=== PATIENT | male | born 1965 | race Caucasian/White ===

== ENCOUNTER 2016-08-14 00:52 | Day surgery (SDC) | payer MEDICARE, OTHER ==
[~2016-08-14] VITALS: Ht 165.1 cm; Wt 95.0 kg
[2016-08-14] VITALS (15 sets, daily range): BP systolic 105–150; BP diastolic 68–88; PULSE 76–91; RESP 11–22; Ht 165.1 cm; Wt 95.0 kg
[~2016-08-14 00:52] MED LIST: ASPI81TA50 PO; BEN50 PO; DIL125/5 PO; GABAPENTIN; METO10TA92 PO; OMEP20CA16 PO; VIC PO
--- NOTE | 2016-08-14 01:15 | ERA ---
ER Documentation Chief Complaint Date/Time DATE: 08/14/16 TIME: 01:15 Chief Complaint Abdominal pain HPI The patient is a 51-year-old male, presenting to the ER because of severe umbilical abdominal pain that began about 3 hours prior to arrival, 03/22, no aggravating or relieving factor, associated with constipation. He denies similar symptoms previously, he denies fever, chills, neck pain, chest pain. The abdominal pain is severe, associated with vomiting mostly mucus. He denies dysuria, polyuria. He does not smoke, drinks socially Past medical history: Hypertension, seizure disorder, history of brain cancer for the last 7 years, completed radiation and chemotherapy in May 2016 Past surgical history: Brain biopsy ROS All systems reviewed and are negative except as per history of present illness. Medications Home Meds Reported Medications Omeprazole* (Omeprazole*) 20 Mg Capsule.dr, 20 MG PO DAILY 06/14/11 Metoclopramide* (Reglan*) 10 Mg Tablet, 10 MG PO BID 06/14/11 Diphenhydramine Hcl* (Benadryl*) 50 Mg Cap, 50 MG PO 06/14/11 Acetaminophen/Hydrocodone (Vicodin) 1 Tab Tab, 1 TAB PO 06/14/11 [Gabapaintin] No Conflict Check 06/14/11 Phenytoin (Dilantin) 100 Mg/4 Ml Susp, 100 MG PO BID 06/14/11 Aspirin (Aspir-Low) 81 Mg Tablet.dr, 81 MG PO DAILY 06/14/11 Allergies Allergies: Coded Allergies: ibuprofen (Verified Adverse Reaction, Mild, RASH, 06/14/11) PMhx/Soc History of Surgery: Yes (BRAIN BX 2009) Anesthesia Reaction: No Hx Neurological Disorder: Yes (BRAIN CANCER, DIAGNOSED IN JUL 2009) Hx Respiratory Disorders: No Hx Cardiac Disorders: No Hx Psychiatric Problems: No Hx Miscellaneous Medical Probl: No Hx Alcohol Use: No Hx Substance Use: No Hx Tobacco Use: No Physical Exam Vitals Vital Signs Date Time Temp Pulse Resp B/P Pulse Ox O2 Delivery O2 Flow Rate FiO2 08/14/16 01:22 98.1 71 20 132/80 99 Physical Exam Const: No acute distress. Head: Atraumatic. Eyes: Normal Conjunctiva. ENT: Normal External Ears, Nose and Mouth. Neck: Full range of motion. No meningismus. Resp: Clear to auscultation bilaterally. Cardio: Regular rate and rhythm, no murmurs. Abd: Soft, non distended, hypoactive bowel sounds, diffusely tender, no rigidity, rebound, CVA tenderness Skin: No petechiae or rashes. Back: No midline or flank tenderness. Ext: No cyanosis, or edema. Neur: Awake and alert. No focal deficit Psych: Normal Mood and Affect. Result Diagram: 08/14/16 0130 08/14/16 0130 Results 24 hrs Laboratory Tests Test 08/14/16 01:30 08/14/16 03:15 Activated Partial Thromboplast Time 23.0Sec Alanine Aminotransferase (ALT/SGPT) 31IU/L Albumin 4.4g/dl Albumin/Globulin Ratio 1.33 Alkaline Phosphatase 92IU/L Anion Gap 19 Aspartate Amino Transf (AST/SGOT) 22IU/L Basophils # 0.010^3/ul Basophils % 0.4% Blood Urea Nitrogen 16mg/dl Calcium Level 9.2mg/dl Carbon Dioxide Level 28mmol/L Chloride Level 100mmol/L Creatinine 1.15mg/dl Direct Bilirubin 0.00mg/dl Eosinophils # 0.110^3/ul Eosinophils % 0.7% Globulin 3.30g/dl Glucose Level 126mg/dl Hematocrit 45.2% Hemoglobin 15.3g/dl INR International Normalized Ratio 0.97 Indirect Bilirubin 0.3mg/dl Lipase 121U/L Lymphocytes # 2.010^3/ul Lymphocytes % 18.1% Mean Corpuscular Hemoglobin 28.9pg Mean Corpuscular Hemoglobin Concent 33.8g/dl Mean Corpuscular Volume 85.3fl Mean Platelet Volume 11.5fl Monocytes # 0.810^3/ul Monocytes % 7.0% Neutrophils # 8.110^3/ul Neutrophils % 73.4% Nucleated Red Blood Cells # 0.010^3/ul Nucleated Red Blood Cells % 0.0/100WBC Platelet Count 77818^3/UL Potassium Level 3.1mmol/L Prothrombin Time 12.9Sec Prothrombin Time Ratio 1.0 Red Blood Count 5.3010^6/ul Red Cell Distribution Width 13.0% Sodium Level 144mmol/L Total Bilirubin 0.3mg/dl Total Protein 7.7g/dl White Blood Count 11.010^3/ul Bedside Urine Blood Negative Bedside Urine Glucose (UA) Negative Bedside Urine Ketones (LAB) 1+ Bedside Urine Leukocyte Esterase (L Negative Bedside Urine Nitrite (LAB) Negative Bedside Urine Protein (LAB) Trace Bedside Urine pH (LAB) 6.0 Current Medications Medications (Trade) Dose Ordered Sig/Moreno Route PRN Reason Start Time Stop Time Status Last Admin Dose Admin Morphine Sulfate (morphine) 4 mg ONCE STAT IV 08/14/16 01:17 08/14/16 01:19 DC 08/14/16 01:25 Ondansetron HCl (Zofran Inj) 4 mg ONCE STAT IV 08/14/16 01:17 08/14/16 01:20 DC 08/14/16 01:25 Hydromorphone HCl (Dilaudid) 1 mg ONCE ONCE IV 08/14/16 02:03 08/14/16 02:04 DC 08/14/16 02:06 Hydromorphone HCl (Dilaudid) 1 mg ONCE ONCE IV 08/14/16 02:41 08/14/16 02:42 DC 08/14/16 03:06 Lidocaine (Lidocaine 4% Solution) 1 applic ONCE ONCE TOP 08/14/16 03:00 08/14/16 03:01 DC Hydromorphone HCl 1 mg 1 mg ONCE ONCE IV 08/14/16 02:41 08/14/16 02:42 DC Piperacillin Sod/ Tazobactam Sod 100 ml @ 200 mls/hr ONCE ONCE IVPB 08/14/16 03:00 08/14/16 03:29 Potassium Chloride (KCl 40 MEQ/250 ML NS) 250 ml @ 62.5 mls/hr ONCE ONCE IVPB 08/14/16 03:30 08/14/16 07:29 Procedures/MDM EKG: Read by emergency physician Rate/Rhythm: Normal Sinus Rhythm 72 beats/min QRS, ST, T-waves: No ST elevation, no T inversion Impression: Normal EKG [place] [address] Radiology Main Line: [phone] DIAGNOSTIC IMAGING REPORT Patient: KARINE DUBOIS : 1965 Age: 51 Sex: M MR #: [id number] DOS: 08/14/16 0117 Ordering MD: AYANA JORDAN MD Location: E/R Room/Bed: PROCEDURE: XR Chest. CLINICAL INDICATION: Abdominal Pain TECHNIQUE: Portable single view of the chest COMPARISON: None. FINDINGS: The cardiomediastinal silhouette appears within normal limits. The lungs are clear and no pleural effusion or significant edema is seen. No bony abnormality is seen. IMPRESSION: No definite acute pulmonary disease. RPTAT: HLBE Blanca Aden, Physician Date Time Electronically viewed and signed by Blanca Aden, Physician on 08/14/2016 02 :28 LE/ CC: AYANA JORDAN MD [place] [address] Radiology Main Line: [phone] DIAGNOSTIC IMAGING REPORT Patient: KARINE DUBOIS : 1965 Age: 51 Sex: M MR #: [id number] DOS: 08/14/16 0117 Ordering MD: AYANA JORDAN MD Location: E/R Room/Bed: PROCEDURE: CT Abdomen and pelvis without contrast. CLINICAL INDICATION: Abdominal pain. TECHNIQUE: CT scan of the abdomen and pelvis was performed on a multi- detector high-resolution CT scanner. Contiguous axial images were obtained from the lung bases to the ischial tuberosities without intravenous contrast. Coronal and sagittal reformatted images were also obtained. Images were reviewed on the PACS workstation. One or more of the following dose reduction techniques were used: - Automated exposure control. - Adjustment of the mA and/or kV according to patient size. - Use of iterative reconstruction technique. Exam CTD/vol = 15.03 mGy. Total exam DLP = 881.88 mGy-cm. COMPARISON: None. FINDINGS: Evaluation of the lung bases demonstrates no pleural or parenchymal disease. Abdomen: The liver is normal in size. There is poorly defined hypodense lesion within the dome of the right lobe of the liver measuring 5.4 x 4.0 cm. There is a hypodense lesion within the posterior segment of the right lobe of the liver measuring 3.0 x 2.0 cm. There is no dilatation of the biliary tree. The gallbladder is not distended. The spleen, pancreas and bilateral adrenal glands are within normal limits. Bilateral kidneys are normal in size with no contour deforming mass identified. There is no radiopaque renal or ureteral calculus identified. There is no hydronephrosis or hydroureter. There is no retroperitoneal adenopathy. The abdominal aorta is of normal caliber. There is a small periumbilical hernia containing focal loop of small bowel. There is mild dilatation of the small bowel proximal to the hernia. There is no free air. A normal appendix is identified. There is no diverticulosis or diverticulitis. There is no ascites. Pelvis: The bladder is unremarkable. There is a small right inguinal hernia containing fat. The prostate and seminal vesicles are within normal limits. There is no significant pelvic adenopathy or free fluid. Evaluation of the osseous structures demonstrates no suspicious lytic or blastic lesion. IMPRESSION: Small periumbilical hernia containing focal loop of small bowel. There is developing small bowel obstruction. Small right inguinal hernia containing fat. Two poorly defined hypodense lesions within the right lobe of the liver, indeterminate. Further evaluation can be made by ultrasound or contrast enhanced CT. .Bob Parish MD, Date Time Electronically viewed and signed by .Bob Parish MD, on 08/14/2016 02:31 .T/ CC: AYANA JORDAN MD MEDICAL MAKING DECISION: The patient is a 51-year-old male, presenting with acute small bowel obstruction, acute hypokalemia. He was treated with morphine 4 mg IV, Dilaudid 1 mg IV 2 for pain, Zofran 4 mg IV for nausea, Zosyn IV, nasogastric tube connected to low intermittent suction, potassium chloride 40 mEq IV. The differential diagnoses considered include but are not limited to cholelithiasis, cholecystitis, cystitis, pancreatitis, hepatitis, gastritis, peptic ulcer disease, gastric ulcer, appendicitis, diverticulitis, cholangitis, choledocholithiasis, partial small bowel obstruction. Departure Diagnosis: Primary Impression: Small bowel obstruction Additional Impression: Hypokalemia Condition: Stable Comments Consultation: I discussed the patient with the on-call general surgeon Dr. Akhtar at 3:20 AM, was made aware of the lab, the treatment, the patient condition. He accepted the consult I discussed the findings with the patient. I discussed the patient with the on- call hospitalist Dr. Cabello who was made aware of the lab, the treatment, the patient condition. The patient is admitted to medical surgery bed at 3:30 AM AYANA JORDAN MD Aug 14, 2016 01:15
[2016-08-14] MEDS ORDERED: morphine 4 MG/ML VIAL IV STA (01:17)
[2016-08-14] MEDS ORDERED: ONDANSETRON 4 MG INJ IV STA (01:17)
[2016-08-14] MEDS ORDERED: HYDROmorphONE 1 MG/ML SYG IV ONE ×3 (02:03→02:41)
--- NOTE | 2016-08-14 02:28 | RADRPT ---
PROCEDURE: XR Chest. CLINICAL INDICATION: Abdominal Pain TECHNIQUE: Portable single view of the chest COMPARISON: None. FINDINGS: The cardiomediastinal silhouette appears within normal limits. The lungs are clear and no pleural e ffusion or significant edema is seen. No bony abnormality is seen. IMPRESSION: No definite acute pulmonary disease. RPTAT: HLBE Blanca Aden Physician Date Time Electronically viewed and signed by Blanca Aden, Physician on 08/14/2016 02:28 LE/
--- NOTE | 2016-08-14 02:31 | RADRPT ---
PROCEDURE: CT Abdomen and pelvis without contrast. CLINICAL INDICATION: Abdominal pain. TECHNIQUE: CT scan of the abdomen and pelvis was performed on a multi-detector high-resolution CT scanner. Contiguous axial images were obtained from the lung bases to the ischial tuberosities wit hout intravenous contrast. Coronal and sagittal reformatted images were also obtained. Images were reviewed on the PACS workstation. One or more of the following dose reduction techniques were used: - Automated exposure control. - Adjustment of the mA and/or kV according to patient size. - Use of iterative reconstruction technique. Exam CTD/vol = 15.03 mGy. Total exam DLP = 881.88 mGy-cm. COMPARISON: None. FINDINGS: Evaluation of the lung bases demonstrates no pleural or parenchymal disease. Abdomen: The liver is normal in size. There is poorly defined hypodense lesion within the dome of the right lobe of the liver measuring 5.4 x 4.0 cm. There is a hypodense lesion within the posterio r segment of the right lobe of the liver measuring 3.0 x 2.0 cm. There is no dilatation of the bilia ry tree. The gallbladder is not distended. The spleen, pancreas and bilateral adrenal glands are w ithin normal limits. Bilateral kidneys are normal in size with no contour deforming mass identified . There is no radiopaque renal or ureteral calculus identified. There is no hydronephrosis or hydr oureter. There is no retroperitoneal adenopathy. The abdominal aorta is of normal caliber. There is a small periumbilical hernia containing focal loop of small bowel. There is mild dilatatio n of the small bowel proximal to the hernia. There is no free air. A normal appendix is identified . There is no diverticulosis or diverticulitis. There is no ascites. Pelvis: The bladder is unremarkable. There is a small right inguinal hernia containing fat. The p rostate and seminal vesicles are within normal limits. There is no significant pelvic adenopathy or free fluid. Evaluation of the osseous structures demonstrates no suspicious lytic or blastic lesion. IMPRESSION: Small periumbilical hernia containing focal loop of small bowel. There is developing small bowel ob struction. Small right inguinal hernia containing fat. Two poorly defined hypodense lesions within the right lobe of the liver, indeterminate. Further jacqueline luation can be made by ultrasound or contrast enhanced CT. .Bob Parish MD, MD Date Time Electronically viewed and signed by .Bob Parish MD, MD on 08/14/2016 02:31 .T/
[2016-08-14 02:42] LABS: ADD SCAN DIFF NO
[2016-08-14 02:48] LABS: BASOPHILS % 0.4 % (0.0-2.0); EOSINOPHILS # 0.1 10^3/ul (0.0-0.5); EOSINOPHILS % 0.7 % (0.0-7.0); HEMATOCRIT 45.2 % (42.0-52.0); HEMOGLOBIN 15.3 g/dl (14.0-18.0); LYMPHOCYTES % 18.1 % (15.0-51.0); MEAN CORPUSCULAR HEMOGLOBIN 28.9 pg (29.0-33.0); MEAN CORPUSCULAR HGB CONC 33.8 g/dl (32.0-37.0); MEAN CORPUSCULAR VOLUME 85.3 fl (82.0-101.0); MEAN PLATELET VOLUME 11.5 fl (7.4-10.4); MONOCYTE # 0.8 10^3/ul (0.3-0.9); NEUTROPHIL # 8.1 10^3/ul (1.6-7.5); NEUTROPHILS % 73.4 % (39.0-77.0); PLATELET COUNT 242 10^3/UL (140-415)
[2016-08-14 02:55] LABS: ALBUMIN 4.4 g/dl (3.3-4.9)
[2016-08-14 02:56] LABS: POTASSIUM 3.1 mmol/L (3.5-5.1)
[2016-08-14 02:58] LABS: ALBUMIN/GLOBULIN RATIO 1.33; BILIRUBIN,INDIRECT 0.3 mg/dl (0-1.1); BILIRUBIN,TOTAL 0.3 mg/dl (0.2-1.3); CREATININE 1.15 mg/dl (0.61-1.24); TOTAL PROTEIN 7.7 g/dl (6.1-8.1)
[2016-08-14 02:59] LABS: CALCIUM 9.2 mg/dl (8.4-10.2)
[2016-08-14] MEDS ORDERED: LIDOCAINE 4% SOLUTION 50 ML BTL TOP ONE (03:00)
[2016-08-14] MEDS ORDERED: PIPER-TAZO 3.375 GM IV (PMX) 100 ML IVPB ONE (03:00)
[2016-08-14 03:02] LABS: INR 0.97; PROTIME 12.9 Sec (12.2-14.2)
[2016-08-14 03:13] LABS: URINE BLOOD (Dip) POC Negative (NEGATIVE)
[2016-08-14] MEDS ORDERED: POTASSIUM CHLORIDE 250 ML IVPB ONE (03:30)
[2016-08-14 04:18] LABS: URINE BLOOD (Dip) POC Negative (NEGATIVE)
--- NOTE | 2016-08-14 04:29 | RADRPT ---
PROCEDURE: Chest. CLINICAL INDICATION: Chest pain. TECHNIQUE: Single frontal view of the chest was obtained. COMPARISON: 08/14/2016. FINDINGS: There is a nasogastric tube extending to the stomach. The cardiac silhouette is within normal limit s. The aortic arch is unremarkable. There is no focal consolidation, vascular congestion or pleura l effusion. There is no pneumothorax. IMPRESSION: No evidence for active cardiopulmonary disease. Nasogastric tube in place. .Bob Parish MD, Date Time Electronically viewed and signed by .Bob Parish MD, on 08/14/2016 04:29 .T/
[2016-08-14] MEDS ORDERED: SUCCINYLCHOLINE CHLORIDE 100 MG/5 ML SYG IV ONE (06:14)
[2016-08-14] MEDS ORDERED: ROCURONIUM 50 MG INJ ONE (06:14)
[2016-08-14] MEDS ORDERED: MIDAZOLAM 1 MG/ML 2 ML INJ ONE (06:14)
[2016-08-14] MEDS ORDERED: ROPIVACAINE 0.2% 20 ML VIAL ONE (06:14)
[2016-08-14] MEDS ORDERED: PROPOFOL 20 ML ONE (06:14)
[2016-08-14] MEDS ORDERED: BUPIVACAINE 0.25%/EPI (SDV) 30 ML INJ ONE (06:15)
[2016-08-14] MEDS ORDERED: morphine (1 MG/ML) 10ML SYRINGE IV PRN ×3 (06:30)
[2016-08-14] MEDS ORDERED: DIPHENHYDRAMINE 50 MG INJ IV PRN (06:30)
[2016-08-14] MEDS ORDERED: ONDANSETRON 4 MG INJ IV PRN ×3 (06:30→11:00)
[2016-08-14] MEDS ORDERED: FENTAnyl 50 MCG/ML VIAL IV PRN ×3 (06:30)
[2016-08-14] MEDS ORDERED: HYDROmorphONE (0.2 MG/ML) 10ML SYG IV PRN ×3 (06:30)
[2016-08-14] MEDS ORDERED: MEPERIDINE 25 MG INJ IV PRN (06:30)
[2016-08-14] MEDS ORDERED: METOCLOPRAMIDE 10 MG INJ IV PRN (06:30)
[2016-08-14] MEDS ORDERED: PHENYLephrine (100 MCG/ML) 5ML SYG ONE (06:37)
[2016-08-14] MEDS ORDERED: BUPIVACAINE 0.25%/EPI (SDV) 30 ML INJ INJ ONE (06:54)
[2016-08-14] MEDS ORDERED: METOCLOPRAMIDE 10 MG INJ ONE (07:00)
[2016-08-14] MEDS ORDERED: NEOSTIGMINE 3 MG/3 ML SYRINGE ONE (07:00)
[2016-08-14] MEDS ORDERED: CEFAZOLIN 1 GM INJ ONE (07:00)
[2016-08-14] MEDS ORDERED: ONDANSETRON 4 MG INJ ONE (07:00)
[2016-08-14] MEDS ORDERED: GLYCOPYRROLATE 0.4 MG INJ ONE (07:00)
[2016-08-14] MEDS ORDERED: KETOROLAC 30 MG INJ ONE (07:00)
[2016-08-14] MEDS ORDERED: DEXAMETHASONE 4 MG/ML 1 ML INJ ONE (07:00)
[2016-08-14] MEDS ORDERED: POTASSIUM CHLORIDE (SR) 20 MEQ TAB PO STA (07:13)
[2016-08-14] MEDS ORDERED: morphine 2 MG INJ IV PRN ×2 (07:30→11:00)
[2016-08-14] MEDS ORDERED: OXYCODONE/ACETAMINOPHEN (5/325) TAB PO PRN ×2 (07:30)
--- NOTE | 2016-08-14 08:42 | OPR ---
DATE OF OPERATION: 08/14/2016 PREOPERATIVE DIAGNOSIS: Incarcerated umbilical hernia with secondary small- bowel obstruction. OPERATION PERFORMED: 1. Reduction of incarcerated umbilical hernia with release of small-bowel obstruction. 2. Repair with medium Ventralex patch. POSTOPERATIVE DIAGNOSIS: Incarcerated umbilical hernia with secondary small- bowel obstruction. SURGEON: Dr. Leslie. ANESTHESIA: General. ANESTHESIOLOGIST: Dr. Hernandez OPERATIVE REPORT: After satisfactory general anesthesia was achieved, the abdomen was prepped and draped in the usual fashion. A left circumumbilical incision was made and carried down to the subcutaneous tissues. While the sac was being dissected from the umbilical skin, the hernia reduced. The sac was able to be dissected in its entirety. It was excised at the fascial level. The involved loop was seen through the fascial defect and was clearly viable. A medium Ventralex patch was placed below the fascial defect as an underlay and secured to healthy fascia via its mesh straps utilizing interrupted 2-0 Novafil. Redundant mesh straps were excised and discarded. The resultant repair was a tension-free underlay repair. The wound was infiltrated with 20 mL of 0.25% plain Marcaine. The umbilicus was tacked to the midline with 3-0 Vicryl. Subcutaneous was closed with interrupted 3-0 Vicryl. Skin was closed with bruna. Operative blood loss less than 10 mL. Sponge and needle counts reported as correct x2. The patient tolerated the procedure well and without incident or complication. Dictated By: KARY LUNA/SAIMA Conf#: [id number] DID#: [id number] CC: KARY LESLIE MD;*EndCC* MTDD
--- NOTE | 2016-08-14 08:43 | CONS ---
DATE OF ADMISSION: 08/14/2016 DATE OF CONSULTATION: TYPE OF CONSULTATION: Surgical. REASON FOR CONSULTATION: Incarcerated umbilical hernia with small-bowel obstruction. HISTORY OF PRESENT ILLNESS: The patient is a 51-year-old gentleman who presented to the emergency r o with sudden onset of umbilical pain, which started approximately 3 hours prior to his admission in the emergency room. He was noted to have an incarcerated umbilical hernia. A CT scan showed a l oop of small-bowel incarcerated in the umbilical hernia with small-bowel obstruction. The patient w as admitted and surgical consultation was requested in that regard. He had an NG tube placed in the emergency room. PAST MEDICAL HISTORY: Significant for history of brain carcinoma diagnosed in 2009, treatment consi sted of a brain biopsy with radiation and chemotherapy, which was completed this last May. OUTPATIENT MEDICATIONS: 1. ____ 2. Aspirin. 3. Reglan. 4. Omeprazole. 5. Benadryl. ALLERGIES: IBUPROFEN. REVIEW OF SYSTEMS: HEAD, EARS, EYES, NOSE AND THROAT: As noted above. PULMONARY: No history of pneumonia, asthma or shortness of breath. CARDIAC: No history of chest pain, ND or arrhythmia. ABDOMEN: As in the HPI. EXTREMITIES: Unremarkable. PHYSICAL EXAMINATION: GENERAL: The patient is an overweight 51-year-old gentleman who is awake and alert and in no acute distress. HEAD, EARS, EYES, NOSE, THROAT: There is a nasogastric tube in place. LUNGS: Clear. HEART: Regular rhythm. ABDOMEN: Obese. There is a golf ball size incarcerated, exquisitely tender umbilical hernia. EXTREMITIES: Unremarkable. LABORATORY DATA: Patient's hematocrit is 45 with a white count of 11,000. BUN, glucose, electrolyt es are unremarkable. INR is 0.97. IMAGING: As noted above. IMPRESSION: Incarcerated umbilical hernia with secondary small-bowel obstruction. PLAN: The patient will undergo urgent operative intervention in the form of reduction and repair wi th mesh versus possible bowel resection. The procedure, outcomes, expectations, alternatives and ri sks have been detailed to the patient who has an excellent understanding of the nature of his situat ion and agrees to the proposed plan of therapy as outlined. Dictated By: KARY LUNA/SAIMA Conf#: [id number] DID#: [id number]
[2016-08-14] MEDS ORDERED: NACL 0.9% 3 ML SYG IV SCH (11:00)
[2016-08-14] MEDS ORDERED: NITROGLYCERIN (SL) 0.4 MG TAB SL PRN (11:00)
[2016-08-14] MEDS ORDERED: ACETAMINOPHEN 325 MG TAB PO PRN (11:00)
[2016-08-14] MEDS ORDERED: DOCUSATE SODIUM 100 MG CAP PO PRN (11:00)
[2016-08-14] MEDS ORDERED: NA PHOSPHATE/BIPHOS 133 ML ENEMA PR PRN (11:00)
[2016-08-14] MEDS ORDERED: HYDROCODONE/APAP (5/325) TAB PO PRN (11:00)
[2016-08-14] MEDS ORDERED: MAGNESIUM HYDROXIDE 30ML CUP PO PRN (11:00)
[2016-08-14] MEDS ORDERED: LORAZEPAM 2 MG INJ IV PRN (11:00)
[2016-08-14] MEDS ORDERED: ALBUTEROL/IPRATROPIUM (NEB) 3 ML AMP HHN PRN (11:00)
[2016-08-14] MEDS ORDERED: HYDR-906 PO ×2 (12:29→12:38)
[2016-08-14] MEDS ORDERED: ASPI-664 PO (13:00)
[2016-08-14] MEDS ORDERED: SENN-53 PO (15:37)
--- NOTE | 2016-08-14 15:39 | PDOCDIS ---
Discharge Instructions DIAGNOSIS Discharge Diagnosis: Incarcerated umbilical hernia with small bowel obstruction CONDITION Patient Condition: Stable HOME CARE INSTRUCTIONS: Diet Instructions: Low Fat /Cholesterol (advance diet as tolerated) ACTIVITY: Activity Restrictions: Slowly Increase Activity Rest between Activity Avoid heavy lifting Bathing Restrictions: Sponge Bath FOLLOW UP/APPOINTMENTS Appointments 1. Follow up with Dr. Akhtar in one week ANI TALBERT Aug 14, 2016 15:39
--- NOTE | 2016-08-14 15:45 | HP ---
Date/Time of Note Date/Time of Note DATE: 08/14/16 TIME: 15:39 Assessment/Plan VTE Prophylaxis VTE Prophylaxis Intervention: SCD's Lines/Catheters IV Catheter Type (from Nrs): Peripheral IV Assessment/Plan Chief Complaint/Hosp Course Assessment and plan 1. Umbilical hernia with small bowel obstruction status post surgical intervention. Continue postop care. Analgesics as needed. Advance diet as tolerated.. Monitor for fevers. Consider antibiotics should condition worsen 2. History of seizures. Continue on antiseizure medication Admission process 40 minutes Discussed plan of care with Dr. Payan Problems: HPI/ROS Admit Date/Time Admit Date/Time Hx of Present Illness This is a 51-year-old male with past medical history ofHypertension, seizure, brain cancer for 7 years status post radiation and chemotherapy in May 2016 and came to [facility] secondary to reports of abdominal pain. Patient did report that he started to have abdominal pain one night prior to admission. He ate dinner and after dinner he started to have pain. He had associated nausea and vomiting nonbilious nonbloody with it. He also had a report of diarrhea. He denies any chest pain or shortness of breath. He denies any sick contacts. No recent travel. He reported that his pain was so bad that he came to [facility] for further evaluation. Upon examination he did have CT scan of his abdomen that did reveal him to have a small periumbilical hernia containing focal loop of small bowel developing into small bowel obstruction. Patient was seen by general surgeon and did receive surgical intervention with reduction of incarcerated umbilical hernia with release of small bowel obstruction. Patient did tolerate this procedure well. We will evaluate him for the aforementioned issue PMH/Family/Social Past Medical History Medical/surgical history 1. Brain cancer (details unknown) status post chemotherapy and radiation in May 2016 2. History of seizures. Family History Significant Family History: no pertinent family hx Social History Alcohol Use: none Smoking Status: Never smoker Drug Use: none Exam/Review of Systems Vital Signs Vitals Vital Signs Date Time Temp Pulse Resp B/P Pulse Ox O2 Delivery O2 Flow Rate FiO2 08/14/16 10:04 98.0 91 18 115/73 98 Room Air Intake and Output 08/13/16 08/13/16 08/14/16 15:00 23:00 07:00 Intake Total 800 ml Output Total 5 ml Balance 795 ml Exam Exam General: Comfortable at present no apparent distress Eyes: Pupils equal round reactive to light Neck: Supple nontender, no JVD Cardiac: S1-S2 auscultated remains a regular rate Pulmonary: No obvious adventitious sounds GI: Minimally tender upon palpation status post surgical intervention bowel sounds active Extremities: No edema noted bilateral lower extremities Skin: Surgical site on abdomen noted with some dry blood on gauze. Neurologic: Alert to person place time Labs Result Diagram: 08/14/1612908/14/16129 Medications Medications Current Medications Oxycodone/ Acetaminophen (Percocet (5/ 325)) 1 tab Q4H PRN PO MILD PAIN (1-3); Start 08/14/16 at 07:30 Oxycodone/ Acetaminophen (Percocet (5/ 325)) 2 tab Q4H PRN PO MODERATE PAIN (4- 6); Start 08/14/16 at 07:30 Morphine Sulfate (morphine) 2 mg ONCE PRN IV SEVERE PAIN LEVEL 7-10; Start 08/14 at 07:30; Stop 08/14/16 at 23:00 Ondansetron HCl (Zofran Inj) 4 mg Q6H PRN IV NAUSEA AND/OR VOMITING; Start 08/14 at 11:00 Acetaminophen (Tylenol Tab) 650 mg Q6H PRN PO PAIN LEVEL 1-3 OR FEVER; Start at 11:00 Acetaminophen/ Hydrocodone Bitart (Brashear (5/325)) 1 tab Q6H PRN PO MODERATE PAIN LEVEL 4-6; Start 08/14/16 at 11:00 Morphine Sulfate (morphine) 2 mg Q4H PRN IV SEVERE PAIN LEVEL 7-10; Start at 11:00 Docusate Sodium (Colace) 100 mg Q12H PRN PO CONSTIPATION; Start 08/14/16 at 11: 00 Magnesium Hydroxide (Milk Of Mag) 30 ml DAILY PRN PO CONSTIPATION; Start at 11:00 Sodium Biphosphate/ Sodium Phosphate (Fleet Enema) 133 ml DAILY PRN AL CONSTIPATION; Start 08/14/16 at 11:00 Pantoprazole (Protonix Iv) 40 mg DAILY@06 IV ; Start 08/15/16 at 06:00 Lorazepam (Ativan) 0.5 mg Q6H PRN IV ANXIETY; Start 08/14/16 at 11:00 Nitroglycerin (Nitroglycerin (Sl Tab) 0.4 Mg) 1 tab Q5M PRN SL ANGINA; Start at 11:00 ANI TALBERT Aug 14, 2016 15:45
[2016-08-15] MEDS ORDERED: PANTOPRAZOLE 40 MG INJ IV SCH (06:00)
== END 2016-08-14 18:35 | disposition home or self-care (01) ==
LOC: E/R 00:52 → SDS 06:01 → MS1 08:47 → SDS 18:35
PROVIDERS: ATTEND Surgery
DX: K42.0 Umbilical hernia with obstruction, without gangrene (principal); Z85.841 Personal history of malignant neoplasm of brain; Z79.82 Long term (current) use of aspirin
CPT/HCPCS: 36415; 49587; 71010; 74176; 80053; 81003; 83690; 84439; 85025; 85610; 85730; 88302; 93005; 96374; 96375; 96376; 99285; C1781; J0330; J0690; J1100; J1170; J1885; J2250; J2270; J2370; J2405; J2543; J2710; J2765; J2795; J3010; J3480